=== PATIENT | male | born 1955 | race Caucasian/White ===

== ENCOUNTER 2021-04-04 13:53 | Inpatient (IN) | payer MEDICARE ==
[~2021-04-04] VITALS: Ht 182.9 cm; Wt 83.9 kg
[2021-04-04] MEDS ORDERED: MORPHINE SULFATE 2 MG/1 ML DISP.SYRIN IV ONE (14:00)
--- NOTE | 2021-04-04 14:10 | NUR ---
PT IS IN ROOM #1A. DR BENJAMIN EVALUATED THE PT.
[2021-04-04] MEDS ORDERED: MORPHINE SULFATE 2 MG/1 ML DISP.SYRIN ONE (14:13)
[2021-04-04] MEDS ORDERED: CEFTRIAXONE 1 G in IV DEXTROSE 5% 50 ML IV ONE (14:30)
[2021-04-04] MEDS ORDERED: DEXAMETHASONE SOD PHOSPHATE 4 MG INJ IV ONE (14:30)
[2021-04-04 14:32] LABS: HEMATOCRIT 48.1 % (36.7-47.1); MEAN CORPUSCULAR HEMOGLOBIN 29.3 uug (23.8-33.4); MEAN CORPUSCULAR VOLUME 85.2 fL (73.0-96.2); PLATELET COUNT (AUTO) 162 K/uL (152-348)
[2021-04-04 14:37] LABS: POTASSIUM 3.5 mmol/L (3.5-5.1)
[2021-04-04] MEDS ORDERED: DEXAMETHASONE SOD PHOSPHATE 10 MG INJ ONE (14:40)
[2021-04-04] MEDS ORDERED: CEFTRIAXONE /D5W 50ML IVPB **ER PYXIS IV ONE (14:41)
[2021-04-04 14:49] LABS: BILIRUBIN,DIRECT 0.7 mg/dL (0.0-0.2); BILIRUBIN,TOTAL 1.7 mg/dL (0.2-1.0); TOTAL PROTEIN, SERUM 7.2 g/dL (6.4-8.2)
[2021-04-04] MEDS ORDERED: SWABABLE VALVE TRANSFER SET EA MC ONE (15:28)
[2021-04-04] MEDS ORDERED: IOHEXOL 350 100 ML INFUS..BTL ONE (15:29)
[2021-04-04] MEDS ORDERED: IV NORMAL SALINE 250 ML IV ONE (15:29)
[2021-04-04] MEDS ORDERED: AZITHROMYCIN 250 MG TABLET PO ONE (16:30)
[2021-04-04] MEDS ORDERED: AZITHROMYCIN 250 MG TABLET ONE (16:42)
[2021-04-04] MEDS ORDERED: Z GUARD REMEDY PASTE 57 GM TUBE TOP PRN (17:00)
[2021-04-04] MEDS ORDERED: ACETAMINOPHEN 325 MG TABLET PO PRN (17:00)
[2021-04-04] MEDS ORDERED: ONDANSETRON 4 MG/2 ML VIAL IV PRN (17:00)
[2021-04-04] MEDS ORDERED: MAGNESIUM HYDROXIDE 30 ML LIQUID UDC PO PRN (17:00)
--- NOTE | 2021-04-04 17:58 | NUR ---
REPORT WAS GIVEN TO PARKING STATION ATTENDANT. PT WAS TRANSFERED TO TELEMETRY ROOM #314.
[2021-04-04 18:32] VITALS: BP 107/64
--- NOTE | 2021-04-04 19:30 | NUR ---
Assumed care of patient from day shift nurse Cheyenne. This is a 65 years old male admitted with Dx of right sided PNA and PUI. Patient AAOx4. In no acute distress. On O2 at 3LPM via NC. O2 sat at 92% at this time. NSR on tele at 91/min. IVC site on right wrist intact and patent. Routine admission care done, plan of care initiated. COVID precaution initiated. Safety measure initiated and call dee within reached. Continue to monitor.
[2021-04-04 20:15] VITALS: BP 92/62
[2021-04-04] MEDS: IV NS 1000 ML 1,000 ML IV PRN (20:38)
[2021-04-04] MEDS ORDERED: IBUPROFEN 400 MG TABLET PO PRN (20:45)
[2021-04-04] MEDS ORDERED: ENOXAPARIN SODIUM 40 MG/0.4 ML DISP.SYRIN SQ SCH (21:00)
[2021-04-04] MEDS: methylPREDNISolone SOD SUCC 40 MG/ML VIAL IV SCH (21:24)
[2021-04-05 00:15] VITALS: BP 98/50
[2021-04-05 04:20] VITALS: BP 100/64
[2021-04-05] MEDS: methylPREDNISolone SOD SUCC 40 MG/ML VIAL IV SCH ×2 (05:29→13:34)
[2021-04-05 06:13] LABS: HEMATOCRIT 45.5 % (36.7-47.1); MEAN CORPUSCULAR HEMOGLOBIN 29.6 uug (23.8-33.4); MEAN CORPUSCULAR VOLUME 84.8 fL (73.0-96.2); PLATELET COUNT (AUTO) 177 K/uL (152-348)
--- NOTE | 2021-04-05 06:18 | NUR ---
AAOx4. In no acute distress. On O2 at 3LPM via NC. O2 sat at 92% at this time. NSR on tele at 78/min. IV site on right wrist intact and patent. IVF infusing. Needs attended to and met. COVID precaution maintained. Safety measure maintained and call dee within reached.
[2021-04-05 06:40] LABS: BILIRUBIN,TOTAL 0.8 mg/dL (0.2-1.0); POTASSIUM 4.2 mmol/L (3.5-5.1); TOTAL PROTEIN, SERUM 7.3 g/dL (6.4-8.2)
[2021-04-05 06:47] LABS: MAGNESIUM 2.3 mg/dL (1.8-2.4)
--- NOTE | 2021-04-05 08:00 | NUR ---
awake alert and oriented, denies of pain, has occasional cough, denies of chest pain, tele SR 80's, seen by Dr Billy and Dr Rubin-see notes, needs attended and safety measures maintained, on 2L nc with sat at 96%, decreased to 1L/nc, call light within reach
[2021-04-05] MEDS: IV NS 1000 ML 1,000 ML IV PRN (09:43)
[2021-04-05] MEDS ORDERED: ASPIRIN 81 MG TAB.CHEW PO SCH (10:30)
--- NOTE | 2021-04-05 11:00 | NUR ---
seen by DR Anderson- see notes
[2021-04-05 12:00] VITALS: BP 103/57
--- NOTE | 2021-04-05 12:00 | NUR ---
placed on room air-lunch served, checked after 30 minutes 94 % R/A
--- NOTE | 2021-04-05 13:30 | NUR ---
INFORMED OF THE D/C ORDER, WILL LET HIM KNOW WHEN PAPERS ARE READY AND ALSO HAS IV ABX AT 1500- STATES WILL TAKE HIS ABX FIRST PRIOR TO D/C
[2021-04-05] MEDS ORDERED: CEFTRIAXONE 1 G in IV DEXTROSE 5% 50 ML IV SCH (15:00)
--- NOTE | 2021-04-05 15:20 | NUR ---
iv rocephin completed, states will call friend to pick him up, saline lock removed- no swelling removed, tele removed, belongings list signed, discharge instructions given including his prescription- verbalized understanding,
--- NOTE | 2021-04-05 15:45 | NUR ---
friend here to pick him up- left in stable condition with his N95 and surgical mask [extra]and all belongings
[2021-04-05] MEDS ORDERED: AZITHROMYCIN IV 500 MG in IV DEXTROSE 5% 250 ML IV SCH (17:00)
[2021-04-05] MEDS ORDERED: ATORVASTATIN 40 MG TABLET PO SCH (21:00)
== END 2021-04-05 15:45 | disposition home or self-care (01) | DRG 193 ==
LOC: ER 13:53 → TELE3 17:18
PROVIDERS: ADMIT Internal Medicine; ATTEND Internal Medicine
DX: J15.9 Unspecified bacterial pneumonia (principal); J96.01 Acute respiratory failure with hypoxia; J44.0 Chronic obstructive pulmonary disease with (acute) lower respiratory infection; Z20.822 Contact with and (suspected) exposure to COVID-19; E11.9 Type 2 diabetes mellitus without complications; E78.5 Hyperlipidemia, unspecified; I25.10 Atherosclerotic heart disease of native coronary artery without angina pectoris; K76.0 Fatty (change of) liver, not elsewhere classified; Z95.5 Presence of coronary angioplasty implant and graft; R16.1 Splenomegaly, not elsewhere classified; F17.210 Nicotine dependence, cigarettes, uncomplicated; F17.200 Nicotine dependence, unspecified, uncomplicated; I10 Essential (primary) hypertension; I25.2 Old myocardial infarction
CPT/HCPCS: 36415; 70030-TC; 71045; 71275; 83605; 83735; 84100; 85025; 85730; 87040; 93005; A4663; G0378; J0456; J0696; J1100; J1650; J2270; J2405; J2920; J7030; J7050; J7060; Q0144; Q9967; U0003

== ENCOUNTER 2022-11-02 16:07 | Inpatient (IN) | payer MEDICARE ==
[~2022-11-02] VITALS: Ht 182.9 cm; Wt 806.5 kg
[2022-11-02 16:37] LABS: HEMATOCRIT 44.8 % (36.7-47.1); MEAN CORPUSCULAR HEMOGLOBIN 28.7 uug (23.8-33.4); MEAN CORPUSCULAR VOLUME 86.4 fL (73.0-96.2); PLATELET COUNT (AUTO) 142 K/uL (152-348)
[2022-11-02 16:49] LABS: POTASSIUM 3.8 mmol/L (3.5-5.1)
[2022-11-02 16:58] LABS: NEUTROPHILS % (MANUAL) 0 % (42-75)
[2022-11-02 17:01] LABS: BILIRUBIN,TOTAL 1.8 mg/dL (0.2-1.0); TOTAL PROTEIN, SERUM 6.9 g/dL (6.4-8.2)
[2022-11-02] MEDS ORDERED: FUROSEMIDE 40 MG/4 ML VIAL IV ONE (17:30)
[2022-11-02 17:34] LABS: MAGNESIUM 1.7 mg/dL (1.8-2.4); PHOSPHOROUS 2.8 mg/dL (2.5-4.9)
[2022-11-02] MEDS ORDERED: FUROSEMIDE 40 MG/4 ML VIAL ONE (18:27)
[2022-11-02] MEDS ORDERED: REMEDY ESSENTIAL ZINC PASTE 113 GM TP PRN (19:00)
[2022-11-02] MEDS ORDERED: MAGNESIUM HYDROXIDE 30 ML LIQUID UDC PO PRN (19:00)
[2022-11-02] MEDS ORDERED: ONDANSETRON 4 MG/2 ML VIAL IV PRN (19:00)
[2022-11-02] MEDS ORDERED: ACETAMINOPHEN 325 MG TABLET PO PRN (19:00)
[2022-11-02 23:25] VITALS: BP 124/87
[2022-11-03] MEDS: FUROSEMIDE 40 MG/4 ML VIAL IV SCH ×3 (00:02→17:48)
[2022-11-03 04:00] VITALS: BP 112/76
[2022-11-03 06:57] LABS: HEMATOCRIT 44.3 % (36.7-47.1); MEAN CORPUSCULAR VOLUME 85.7 fL (73.0-96.2); PLATELET COUNT (AUTO) 154 K/uL (152-348)
[2022-11-03 07:14] LABS: CREATININE 1.1 mg/dL (0.6-1.3); MAGNESIUM 1.8 mg/dL (1.8-2.4); PHOSPHOROUS 3.6 mg/dL (2.5-4.9); POTASSIUM 3.6 mmol/L (3.5-5.1)
[2022-11-03] MEDS ORDERED: PANTOPRAZOLE SODIUM 40 MG VIAL IV SCH (09:00)
[2022-11-03] MEDS ORDERED: ENOXAPARIN SODIUM 40 MG/0.4 ML DISP.SYRIN SQ SCH (09:00)
[2022-11-03 09:15] VITALS: BP 118/86
[2022-11-03 09:23] VITALS: BP 127/86
[2022-11-03] MEDS: CLOPIDOGREL 75 MG TABLET PO SCH (09:28)
[2022-11-03] MEDS: ASPIRIN 81 MG TAB.CHEW PO SCH (09:28)
[2022-11-03] MEDS ORDERED: ENOXAPARIN SODIUM 80 MG/0.8 ML DISP.SYRIN SQ SCH (09:29)
[2022-11-03 11:32] VITALS: BP 114/76
[2022-11-03 14:59] LABS: *AMPHETAMINE, URINE POSITIVE (NEGATIVE); *CANNABINOID, URINE NEGATIVE (NEGATIVE); *COCCAINE, URINE NEGATIVE (NEGATIVE); *PHENCYCLIDINE SCREEN,URINE NEGATIVE (NEGATIVE)
[2022-11-03] MEDS: LORAZEPAM 0.5 MG TABLET PO PRN ×2 (16:12→20:31)
[2022-11-03 16:17] VITALS: BP 110/77
[2022-11-03] MEDS ORDERED: IV NORMAL SALINE 250 ML IV ONE (16:20)
[2022-11-03] MEDS ORDERED: SWABABLE VALVE TRANSFER SET EA MC ONE (16:20)
[2022-11-03] MEDS ORDERED: IOHEXOL 350 100 ML INFUS..BTL ONE (16:22)
[2022-11-03 20:20] VITALS: BP 111/81
[2022-11-04] VITALS: BP 120/77
[2022-11-04 04:00] VITALS: BP 115/76
[2022-11-04] MEDS: PANTOPRAZOLE SODIUM 40 MG TABLET.DR PO SCH (06:08)
[2022-11-04 06:23] LABS: HEMATOCRIT 44.7 % (36.7-47.1); MEAN CORPUSCULAR HEMOGLOBIN 28.6 uug (23.8-33.4); MEAN CORPUSCULAR VOLUME 85.6 fL (73.0-96.2); PLATELET COUNT (AUTO) 156 K/uL (152-348)
[2022-11-04 06:46] LABS: CREATININE 1.1 mg/dL (0.6-1.3); MAGNESIUM 1.9 mg/dL (1.8-2.4); PHOSPHOROUS 3.6 mg/dL (2.5-4.9); POTASSIUM 3.5 mmol/L (3.5-5.1)
[2022-11-04 08:00] VITALS: BP 126/66
[2022-11-04] MEDS: CLOPIDOGREL 75 MG TABLET PO SCH (08:38)
[2022-11-04] MEDS: FUROSEMIDE 40 MG/4 ML VIAL IV SCH (08:38)
[2022-11-04] MEDS: ASPIRIN 81 MG TAB.CHEW PO SCH (08:38)
[2022-11-04 09:02] LABS: EOSINOPHILS % (MANUAL) 3 % (0-8); LYMPHOCYTES % (MANUAL) 26 % (20-40); MONOCYTES % (MANUAL) 13 % (2-10); MYELOCYTES % 2 % (0-0); NEUTROPHILS % (MANUAL) 56 % (42-75)
[2022-11-04 12:00] VITALS: BP 110/70
[2022-11-04] MEDS: LOSARTAN POTASSIUM 25 MG TABLET PO SCH (12:10)
[2022-11-04 16:04] VITALS: BP 141/64
[2022-11-04] MEDS: FUROSEMIDE 40 MG TABLET PO SCH (16:08)
[2022-11-04 20:00] VITALS: BP 95/67
[2022-11-04] MEDS: LORAZEPAM 0.5 MG TABLET PO PRN (22:33)
[2022-11-05 00:01] VITALS: BP 110/53
[2022-11-05 04:00] VITALS: BP 103/62
[2022-11-05] MEDS: LORAZEPAM 0.5 MG TABLET PO PRN (04:06)
[2022-11-05] MEDS: PANTOPRAZOLE SODIUM 40 MG TABLET.DR PO SCH (06:48)
[2022-11-05 06:54] LABS: HEMATOCRIT 43.3 % (36.7-47.1); MEAN CORPUSCULAR HEMOGLOBIN 28.7 uug (23.8-33.4); MEAN CORPUSCULAR VOLUME 85.4 fL (73.0-96.2); PLATELET COUNT (AUTO) 183 K/uL (152-348)
[2022-11-05 07:30] LABS: CREATININE 1.2 mg/dL (0.6-1.3); MAGNESIUM 1.9 mg/dL (1.8-2.4); PHOSPHOROUS 4.3 mg/dL (2.5-4.9); POTASSIUM 3.5 mmol/L (3.5-5.1)
[2022-11-05 07:54] LABS: NEUTROPHILS % (MANUAL) 0 % (42-75)
[2022-11-05] MEDS: LOSARTAN POTASSIUM 25 MG TABLET PO SCH (09:00)
[2022-11-05] MEDS: CLOPIDOGREL 75 MG TABLET PO SCH (09:59)
[2022-11-05] MEDS: FUROSEMIDE 40 MG TABLET PO SCH (10:00)
[2022-11-05] MEDS: ASPIRIN 81 MG TAB.CHEW PO SCH (10:00)
[2022-11-05] MEDS ORDERED: LOSA25TA27 PO (10:22)
[2022-11-05] MEDS ORDERED: FURO40TA5 PO (10:22)
[2022-11-05] MEDS ORDERED: ASPI81TA31 PO (10:22)
[2022-11-05] MEDS ORDERED: CLOP75TA33 PO (10:22)
[2022-11-05 11:49] VITALS: BP 109/71
== END 2022-11-05 12:45 | disposition home or self-care (01) | DRG 291 ==
LOC: ER 16:07 → TELE3 20:52 → TELE-TD3 22:08 → MEDSURG3 11-04 16:38 → TELE3 11-04 17:49
PROVIDERS: ADMIT Nurse Practitioner Acute Care; ATTEND Nurse Practitioner Acute Care
PROC: 05HY33Z Insertion of Infusion Device into Upper Vein, Percutaneous Approach (ICD-10-PCS; principal; 2022-11-02)
DX: I50.23 Acute on chronic systolic (congestive) heart failure (principal); J96.01 Acute respiratory failure with hypoxia; I82.811 Embolism and thrombosis of superficial veins of right lower extremity; I42.7 Cardiomyopathy due to drug and external agent; I42.0 Dilated cardiomyopathy; F15.10 Other stimulant abuse, uncomplicated; E78.5 Hyperlipidemia, unspecified; J44.9 Chronic obstructive pulmonary disease, unspecified; F17.200 Nicotine dependence, unspecified, uncomplicated; I25.10 Atherosclerotic heart disease of native coronary artery without angina pectoris; I25.2 Old myocardial infarction; T43.651S Poisoning by methamphetamines accidental (unintentional), sequela; Z95.5 Presence of coronary angioplasty implant and graft; Z95.820 Peripheral vascular angioplasty status with implants and grafts; E11.9 Type 2 diabetes mellitus without complications; Z20.822 Contact with and (suspected) exposure to COVID-19
CPT/HCPCS: 36415; 70030-TC; 71045; 71275; 83735; 84100; 84484; 85025; 93005; 93307; A4663; C9113; G0378; J1650; J1940; Q9967